=== PATIENT | male | born 1930 | race Caucasian/White ===

== ENCOUNTER 2017-09-27 12:34 | Inpatient (IN) | payer OTHER, MEDICARE ==
--- NOTE | 2017-09-27 12:56 | PDOC ---
History of Present Illness - General History Source: Patient Exam Limitations: No Limitations - History of Present Illness Initial Comments: 09/27/17 15:01 The patient is a 86 year old male resident from [facility], with a significant past medical history of Prostate CA, CHF, HTN, Compartment syndrome , hx of femoral artery occlusion, [place], CAD s/p stents who presents to the emergency department with generalized weakness today. Patient is accompanied by son and daughter who report the patient was admitted at [facility] for femoral artery occlusion however received blood transfusion for acute blood loss after the procedure. Patient was discharged to [facility] for continuation of care. Today, patient sat up on his bed and suddenly became dizzy ,weak and nauseous. Patient appeared to be pale and lethargic and thus was sent to the ED for further evaluation. Patients son notes the patient had a low grade fever and a productive cough that has not resolved. Patient denies chest pain, headache or dizziness. Patient denies fever, chills, abdominal pain, nausea, vomit, diarrhea or constipation. Patient denies dysuria , frequency, urgency or hematuria. Patient denies sick contacts or recent travel. PCP: Dr. Lorenz [phone] <Britt Kent - Last Filed: 09/27/17 19:05> <Thuan Khanna - Last Filed: 09/27/17 19:06> - General Chief Complaint: Syncope/Near Syncope Stated Complaint: SYNCOPE Past History <Britt Kent - Last Filed: 09/27/17 19:05> <Thuan Khanan - Last Filed: 09/27/17 19:06> - Past Medical History Allergies/Adverse Reactions: Allergies Allergy/AdvReac Type Severity Reaction Status Date / Time carvedilol Allergy Verified 09/27/17 12:52 Home Medications: Ambulatory Orders Acetaminophen [Tylenol] 650 mg PO Q6H PRN 09/27/17 Amiodarone HCl 200 mg PO DAILY 09/27/17 Aspirin [ASA -] 81 mg PO DAILY 09/27/17 Atorvastatin Ca [Lipitor] 10 mg PO HS 09/27/17 Budesonide [Pulmicort 0.25 mg -] 1 neb PO BID PRN 09/27/17 Docusate Sodium [Colace -] 200 mg PO DAILY 09/27/17 Enoxaparin Sodium [Lovenox] 100 mg SQ ASDIR 09/27/17 Hydromorphone [Dilaudid -] 2 mg PO ASDIR PRN 09/27/17 Levalbuterol HCl 0.31 mg IH Q6H 09/27/17 Metoprolol Succinate [Toprol Xl -] 25 mg PO DAILY 09/27/17 Warfarin Sodium [Coumadin] 5 mg PO HS 09/27/17 Review of Systems - Review of Systems Able to Perform ROS?: Yes Comments:: 09/27/17 15:01 GENERAL/CONSTITUTIONAL: No fever or chills. + Generalized weakness. HEAD, EYES, EARS, NOSE AND THROAT: No change in vision. No ear pain or discharge. No sore throat. CARDIOVASCULAR: No chest pain or shortness of breath. RESPIRATORY: +cough. No wheezing, or hemoptysis. GASTROINTESTINAL: No nausea, vomiting, diarrhea or constipation. GENITOURINARY: No dysuria, frequency, or change in urination. MUSCULOSKELETAL: No joint or muscle swelling or pain. No neck or back pain. SKIN: No rash NEUROLOGIC: No headache, vertigo, loss of consciousness, or change in strength/ sensation. ENDOCRINE: No increased thirst. No abnormal weight change. HEMATOLOGIC/LYMPHATIC: No anemia, easy bleeding, or history of blood clots. ALLERGIC/IMMUNOLOGIC: No hives or skin allergy. <Britt Kent - Last Filed: 09/27/17 19:05> *Physical Exam - Vital Signs Last Vital Signs Temp Pulse Resp BP Pulse Ox 98.9 F 93 H 20 96/65 96 09/27/17 12:52 09/27/17 12:52 09/27/17 12:52 09/27/17 12:52 09/27/17 12:52 - Physical Exam Comments: 09/27/17 15:01 GENERAL: Awake, alert, and fully oriented, in no acute distress. +Pale appearing. HEAD: No signs of trauma EYES: PERRLA, EOMI, sclera anicteric, conjunctiva clear ENT: Auricles normal inspection, hearing grossly normal, nares patent, oropharynx clear without exudates. Moist mucosa NECK: Normal ROM, supple, no lymphadenopathy, JVD, or masses LUNGS: Breath sounds equal, clear to auscultation bilaterally. No wheezes, and no crackles HEART: Regular rate and rhythm, normal S1 and S2, no murmurs, rubs or gallops ABDOMEN: Soft, nontender, normoactive bowel sounds. No guarding, no rebound. No masses EXTREMITIES: Normal range of motion, no edema. No clubbing or cyanosis. No cords, erythema, or tenderness NEUROLOGICAL: Cranial nerves II through XII grossly intact. Normal speech. SKIN: Warm, Dry, normal turgor, no rashes or lesions noted. <Britt Kent - Last Filed: 09/27/17 19:05> ED Treatment Course - LABORATORY CBC & Chemistry Diagram: 09/27/17 15:00 09/27/17 15:15 - ADDITIONAL ORDERS Additional order review: 09/27/17 13:49 RBC Cancelled MCV Cancelled MCHC Cancelled RDW Cancelled MPV Cancelled Neutrophils % Cancelled Lymphocytes % Cancelled Monocytes % Cancelled Eosinophils % Cancelled Basophils % Cancelled - Medications Given in the ED: ED Medications Discontinued Medications Generic Name Dose Route Start Last Admin Trade Name Freq PRN Reason Stop Dose Admin Sodium Chloride 500 mls @ 500 mls/hr 09/27/17 13:45 09/27/17 14:26 Normal Saline - IV 09/27/17 14:44 500 mls/hr ASDIR STA Administration <Britt Kent - Last Filed: 09/27/17 19:05> - LABORATORY CBC & Chemistry Diagram: 09/27/17 15:00 09/27/17 15:15 <Thuan Khanna - Last Filed: 09/27/17 19:06> Medical Decision Making - Medical Decision Making 09/27/17 17:08 Dr. Lara at [facility] paged via phone answering servic at [phone] Awaiting call back. 09/27/17 17:24 Dr. Lara returned the page and the patients case was discussed. Possible transfer? 09/27/17 17:43 Jane returned the page and the patients case was discussed. 09/27/17 19:04 Contacted [place] [facility] Discussed patients case with ED attending Dr. Sen. <Britt Kent - Last Filed: 09/27/17 19:05> *DC/Admit/Observation/Transfer - Attestations Scribe Attestion: 09/27/17 15:01 Documentation prepared by Britt Kent, acting as medical planner for Thuan Khanna DO. <Britt Kent - Last Filed: 09/27/17 19:05> - Discharge Dispostion Admit: Yes - Attestations Physician Attestion: 09/27/17 12:56 I, Dr. Thuan Khanna, attest that this document has been prepared under my direction and personally reviewed by me in its entirety. I further attest, that it accurately reflects all work, treatment, procedures and medical decision -making performed by me. <Thuan Khanna - Last Filed: 09/27/17 19:06> Diagnosis at time of Disposition: Near syncope Anemia Qualifiers: Anemia type: unspecified type Qualified Code(s): D64.9 - Anemia, unspecified - Discharge Dispostion Condition at time of disposition: Unchanged/Unknown - Referrals Referrals: Tony Lara MD [Non Staff, Medical] -
[2017-09-27 12:57] VITALS: BMI 19.2
[2017-09-27] MEDS ORDERED: SODIUM CHLORIDE 500 ML IV STA ×2 (13:45→17:00)
--- NOTE | 2017-09-27 15:02 | EKG ---
Test Reason : Blood Pressure : / mmHG Vent. Rate : 093 BPM Atrial Rate : 093 BPM P-R Int : 166 ms QRS Dur : 154 ms QT Int : 428 ms P-R-T Axes : 062 082 039 degrees QTc Int : 532 ms NORMAL SINUS RHYTHM POSSIBLE LEFT ATRIAL ENLARGEMENT RIGHT BUNDLE BRANCH BLOCK ANTERIOR INFARCT , AGE UNDETERMINED ABNORMAL ECG NO PREVIOUS ECGS AVAILABLE Confirmed by NARA BYERS MD ([id number]) on 09/27/2017 3:01:46 PM Referred By: Confirmed By:NARA BYERS MD
[2017-09-27 15:15] LABS: HEMATOCRIT 25.3 % (35.4-49); HEMOGLOBIN 8.2 GM/dL (11.7-16.9); MCH 30.7 pg (25.7-33.7); MCHC 32.3 g/dl (32.0-35.9); MEAN PLT VOLUME 7.4 fl (7.5-11.1); PLATELET COUNT 566 K/MM3 (134-434); RBC 2.67 M/mm3 (4.00-5.60); RDW 16.5 % (11.9-15.9); WHITE BLOOD COUNT 20.8 K/mm3 (4.0-10.0)
[2017-09-27 15:39] LABS: INR 1.8 (0.82-1.09); PROTHROMBIN TIME (PATIENT) 20.3 SEC (9.98-11.88)
[2017-09-27 15:44] LABS: ANION GAP 10 (8-16); BLOOD UREA NITROGEN 28 mg/dL (7-18); CHLORIDE 105 mmol/L (98-107); CO2 21 mmol/L (21-32); CREATININE 2.1 mg/dL (0.7-1.3); GLUCOSE,RANDOM 126 mg/dL (74-106); POTASSIUM 4.8 mmol/L (3.5-5.1); SGOT/AST 44 U/L (15-37); SGPT/ALT 45 U/L (12-78); SODIUM 136 mmol/L (136-145)
[2017-09-27 15:48] LABS: ALK PHOS 69 U/L (45-117); BILIRUBIN,TOTAL 0.5 mg/dL (0.2-1.0); TOT PROT 5.4 g/dl (6.4-8.2)
[2017-09-27 17:35] LABS: PLATELET ESTIMATE INCREASED
[2017-09-27] MEDS ORDERED: ACETAMINOPHEN 1000 MG/100 ML VIAL (NON FORMULARY) IVPB ONE (21:12)
[2017-09-27] MEDS ORDERED: ACETAMINOPHEN 325 MG TABLET (FP) ONE (21:22)
[2017-09-27] MEDS ORDERED: ACETAMINOPHEN 325 MG TABLET (FP) PO ONE (21:28)
--- NOTE | 2017-09-27 21:38 | PDOC ---
*Physical Exam - Vital Signs Last Vital Signs Temp Pulse Resp BP Pulse Ox 99.1 F 88 20 95/61 100 09/27/17 20:07 09/27/17 17:22 09/27/17 17:22 09/27/17 17:22 09/27/17 17:22 ED Treatment Course - LABORATORY CBC & Chemistry Diagram: 09/27/17 15:00 09/27/17 15:15 - ADDITIONAL ORDERS Additional order review: Laboratory Results 09/27/17 09/27/17 09/27/17 15:15 15:00 13:49 PT with INR INR Sodium 136 Cancelled Potassium 4.8 Cancelled Chloride 105 Cancelled Carbon Dioxide 21 Cancelled Anion Gap 10 Cancelled BUN 28 H Cancelled Creatinine 2.1 H Cancelled Creat Clearance w eGFR 30.17 Cancelled Random Glucose 126 H Cancelled Calcium 7.0 L Cancelled Total Bilirubin 0.5 Cancelled AST 44 H Cancelled ALT 45 Cancelled Alkaline Phosphatase 69 Cancelled Creatine Kinase 969 H Cancelled Creatine Kinase Index 0.1 CK-MB (CK-2) 1.936 Troponin I 0.04 Cancelled B-Natriuretic Peptide Cancelled Total Protein 5.4 L Cancelled Albumin 2.0 L Cancelled Blood Type A POSITIVE Antibody Screen Negative Crossmatch See Detail 09/27/17 13:49 PT with INR 20.30 H INR 1.80 H Sodium Potassium Chloride Carbon Dioxide Anion Gap BUN Creatinine Creat Clearance w eGFR Random Glucose Calcium Total Bilirubin AST ALT Alkaline Phosphatase Creatine Kinase Creatine Kinase Index CK-MB (CK-2) Troponin I B-Natriuretic Peptide Total Protein Albumin Blood Type Antibody Screen Crossmatch 09/27/17 09/27/17 15:00 13:49 RBC 2.67 L Cancelled MCV 95.0 Cancelled MCHC 32.3 Cancelled RDW 16.5 H Cancelled MPV 7.4 L Cancelled Neutrophils % No Result Required. Cancelled Lymphocytes % No Result Required. Cancelled Monocytes % Cancelled Eosinophils % Cancelled Basophils % Cancelled - Medications Given in the ED: ED Medications Discontinued Medications Generic Name Dose Route Start Last Admin Trade Name Freq PRN Reason Stop Dose Admin Acetaminophen 1,000 mg 09/27/17 21:12 09/27/17 21:29 Ofirmev Injection - IVPB 09/27/17 21:13 Not Given ONCE ONE Acetaminophen 650 mg 09/27/17 21:28 09/27/17 21:29 Tylenol - PO 09/27/17 21:29 650 mg NOW ONE Administration Sodium Chloride 500 mls @ 500 mls/hr 09/27/17 13:45 09/27/17 14:26 Normal Saline - IV 09/27/17 14:44 500 mls/hr ASDIR STA Administration Sodium Chloride 500 mls @ 500 mls/hr 09/27/17 17:00 09/27/17 17:19 Normal Saline - IV 09/27/17 17:59 500 mls/hr ASDIR STA Administration Medical Decision Making - Medical Decision Making 09/27/17 21:37 Pt admitted on prior shift. D/w Dr. Khanna, patient was reportedly on levaquin in [facility] for pna. No record of antibiotics in [place] transfer paperwork, unclear if he completed a course. Will treat with zosyn, as he has elevated creatinine today. Cultures sent on prior shift. 09/27/17 21:58 Late entry. Case d/w Dr. Handy at 20:45. He will evaluate patient in AM. If VAC is not available, recommended wet to dry dressing. Herminio is unable to release the VAC. Not available here at present. I removed the VAC dressing and placed wet to dry with sterile gauze dressing over it as per Dr. Handy. *DC/Admit/Observation/Transfer Diagnosis at time of Disposition: Near syncope Anemia Qualifiers: Anemia type: unspecified type Qualified Code(s): D64.9 - Anemia, unspecified Pneumonia Qualifiers: Pneumonia type: due to unspecified organism Laterality: unspecified laterality Lung location: unspecified part of lung Qualified Code(s): J18.9 - Pneumonia, unspecified organism - Discharge Dispostion Condition at time of disposition: Unchanged/Unknown - Referrals - Patient Instructions - Post Discharge Activity
[2017-09-27] MEDS ORDERED: PIPERACILLIN/TAZOB 4.5 GM 4.5 GM/100 ML BAG IVPB ONE ×2 (21:42→21:53)
[2017-09-27] MEDS ORDERED: BUDESONIDE 0.25 MG/2ML INH SUSP VIAL NEB PRN (22:33)
[2017-09-27] MEDS ORDERED: ACETAMINOPHEN 325 MG TABLET (FP) PO PRN (22:36)
--- NOTE | 2017-09-27 23:01 | HP ---
Admitting History and Physical - Primary Care Physician PCP: Ángel Wang - Admission History of Present Illness: a 86 year old male resident from [facility], with a significant past medical history of Prostate CA, CHF, HTN, Compartment syndrome, hx of femoral artery occlusion, [place], CAD s/p stents who presents to the emergency department with generalized weakness today. Patient is accompanied by son and daughter who report the patient was admitted at [facility] for femoral artery occlusion however received blood transfusion for acute blood loss after the procedure. Patient was discharged to [facility] for continuation of care. Today, patient sat up on his bed and suddenly became dizzy,weak and nauseous. Patient appeared to be pale and lethargic and thus was sent to the ED for further evaluation. Patients son notes the patient had a low grade fever and a productive cough that has not resolved. - Past Medical History Cardiovascular: Yes: CHF, HTN - Smoking History Smoking history: Unknown if ever smoked Home Medications - Allergies Allergies/Adverse Reactions: Allergies Allergy/AdvReac Type Severity Reaction Status Date / Time carvedilol Allergy Verified 09/27/17 12:52 cefuroxime axetil Allergy Verified 09/27/17 22:17 [From Ceftin] - Home Medications Home Medications: Ambulatory Orders Acetaminophen [Tylenol] 650 mg PO Q6H PRN 09/27/17 Amiodarone HCl 200 mg PO DAILY 09/27/17 Aspirin [ASA -] 81 mg PO DAILY 09/27/17 Atorvastatin Ca [Lipitor] 10 mg PO HS 09/27/17 Budesonide [Pulmicort 0.25 mg -] 1 neb PO BID PRN 09/27/17 Docusate Sodium [Colace -] 200 mg PO DAILY 09/27/17 Enoxaparin Sodium [Lovenox] 100 mg SQ ASDIR 09/27/17 Hydromorphone [Dilaudid -] 2 mg PO ASDIR PRN 09/27/17 Levalbuterol HCl 0.31 mg IH Q6H 09/27/17 Metoprolol Succinate [Toprol Xl -] 25 mg PO DAILY 09/27/17 Warfarin Sodium [Coumadin] 5 mg PO HS 09/27/17 Physical Examination Vital Signs: Vital Signs Temperature 99.1 F 09/27/17 20:07 Pulse Rate 88 09/27/17 21:52 Respiratory Rate 20 09/27/17 21:52 Blood Pressure 126/54 09/27/17 21:52 O2 Sat by Pulse Oximetry (%) 100 09/27/17 21:52 Constitutional: Yes: No Distress HENT: Yes: Atraumatic Neck: Yes: Supple Cardiovascular: Yes: Regular Rate and Rhythm Respiratory: Yes: Rhonchi Gastrointestinal: Yes: Normal Bowel Sounds Extremities: Yes: WNL Neurological: Yes: Alert, Oriented Labs: CBC, BMP 09/27/17 15:00 09/27/17 15:15 Problem List - Problems (1) CHF (congestive heart failure) Code(s): I50.9 - HEART FAILURE, UNSPECIFIED (2) HTN (hypertension) Code(s): I10 - ESSENTIAL (PRIMARY) HYPERTENSION (3) Anemia Code(s): D64.9 - ANEMIA, UNSPECIFIED Qualifiers: Anemia type: unspecified type Qualified Code(s): D64.9 - Anemia, unspecified (4) Near syncope Code(s): R55 - SYNCOPE AND COLLAPSE (5) Pneumonia Code(s): J18.9 - PNEUMONIA, UNSPECIFIED ORGANISM Qualifiers: Pneumonia type: due to unspecified organism Laterality: unspecified laterality Lung location: unspecified part of lung Qualified Code(s): J18.9 - Pneumonia, unspecified organism Assessment/Plan Laboratory Tests 09/27/17 09/27/17 09/27/17 13:49 13:49 13:49 WBC Cancelled Corrected WBC (auto) Cancelled RBC Cancelled Hgb Cancelled Hct Cancelled MCV Cancelled MCH Cancelled MCHC Cancelled RDW Cancelled Plt Count Cancelled MPV Cancelled Total Counted Neutrophils % Cancelled Neutrophils % (Manual) Band Neutrophils % Lymphocytes % Cancelled Lymphocytes % (Manual) Monocytes % Cancelled Monocytes % (Manual) Eosinophils % Cancelled Basophils % Cancelled Nucleated RBC % Cancelled Hypochromia Platelet Estimate Cancelled Platelet Comment Cancelled Polychromasia PT with INR 20.30 H INR 1.80 H Sodium Cancelled Potassium Cancelled Chloride Cancelled Carbon Dioxide Cancelled Anion Gap Cancelled BUN Cancelled Creatinine Cancelled Creat Clearance w eGFR Cancelled Random Glucose Cancelled Calcium Cancelled Total Bilirubin Cancelled AST Cancelled ALT Cancelled Alkaline Phosphatase Cancelled Creatine Kinase Cancelled Creatine Kinase Index CK-MB (CK-2) Troponin I Cancelled B-Natriuretic Peptide Cancelled Total Protein Cancelled Albumin Cancelled Blood Type Antibody Screen Crossmatch 09/27/17 09/27/17 09/27/17 15:00 15:00 15:05 WBC 20.8 H Corrected WBC (auto) RBC 2.67 L Hgb 8.2 L Hct 25.3 L MCV 95.0 MCH 30.7 MCHC 32.3 RDW 16.5 H Plt Count 566 H MPV 7.4 L Total Counted 100 Neutrophils % No Result Required. Neutrophils % (Manual) 81.0 Band Neutrophils % 2.0 Lymphocytes % No Result Required. Lymphocytes % (Manual) 8.0 Monocytes % Monocytes % (Manual) 9 Eosinophils % Basophils % Nucleated RBC % Hypochromia 1+ Platelet Estimate Increased Platelet Comment No clumping noted Polychromasia 2+ PT with INR INR Sodium Potassium Chloride Carbon Dioxide Anion Gap BUN Creatinine Creat Clearance w eGFR Random Glucose Calcium Total Bilirubin AST ALT Alkaline Phosphatase Creatine Kinase Creatine Kinase Index CK-MB (CK-2) Troponin I B-Natriuretic Peptide 6066.59 H Total Protein Albumin Blood Type A POSITIVE Antibody Screen Negative Crossmatch See Detail 09/27/17 09/27/17 15:15 19:19 WBC Corrected WBC (auto) RBC Hgb Hct MCV MCH MCHC RDW Plt Count MPV Total Counted Neutrophils % Neutrophils % (Manual) Band Neutrophils % Lymphocytes % Lymphocytes % (Manual) Monocytes % Monocytes % (Manual) Eosinophils % Basophils % Nucleated RBC % Hypochromia Platelet Estimate Platelet Comment Polychromasia PT with INR INR Sodium 136 Potassium 4.8 Chloride 105 Carbon Dioxide 21 Anion Gap 10 BUN 28 H Creatinine 2.1 H Creat Clearance w eGFR 30.17 Random Glucose 126 H Calcium 7.0 L Total Bilirubin 0.5 AST 44 H ALT 45 Alkaline Phosphatase 69 Creatine Kinase 969 H Creatine Kinase Index 0.1 CK-MB (CK-2) 1.936 Troponin I 0.04 B-Natriuretic Peptide Total Protein 5.4 L Albumin 2.0 L Blood Type A POSITIVE Antibody Screen Crossmatch Active Medications Generic Name Dose Route Start Last Admin Trade Name Freq PRN Reason Stop Dose Admin Acetaminophen 650 mg 09/27/17 22:36 Tylenol - PO Q6H PRN FEVER OR PAIN Amiodarone HCl 200 mg 09/28/17 10:00 Cordarone - PO DAILY [facility] Aspirin 81 mg 09/28/17 10:00 Asa - PO DAILY [facility] Atorvastatin Calcium 10 mg 09/28/17 22:00 Lipitor - PO HS [facility] Budesonide 1 amp 09/27/17 22:33 Pulmicort 0.25 Mg Nebulizer - NEB BID PRN SHORTNESS OF BREATH Docusate Sodium 200 mg 09/28/17 10:00 Colace - PO DAILY [facility] Ampicillin Sodium/Sulbactam 100 mls @ 200 mls/hr 09/28/17 02:00 Sodium 1.5 gm/ Sodium Chloride IVPB Q8H-IV [facility] Metoprolol Succinate 25 mg 09/28/17 10:00 Toprol Xl - PO DAILY [facility] Warfarin Sodium 5 mg 09/28/17 18:00 Coumadin - PO DAILY@1800 [facility]
[2017-09-28] MEDS: SODIUM CHLORIDE 1,000 ML IV SCH (01:56)
[2017-09-28] MEDS: AMPICILLIN NA/SULBACTAM NA 1.5 GM in SODIUM CHLORIDE 100 ML IVPB SCH ×3 (02:24→17:39)
[2017-09-28 02:52] LABS: URINE APPEARANCE CLOUDY; URINE BILIRUBIN NEGATIVE (NEGATIVE); URINE BLOOD 3+ (NEGATIVE); URINE COLOR YELLOW; URINE GLUCOSE (UA) NEGATIVE (NEGATIVE); URINE KETONE NEGATIVE (NEGATIVE); URINE LEUK ESTERASE NEGATIVE (NEGATIVE); URINE NITRITE NEGATIVE (NEGATIVE); URINE UROBILINOGEN NEGATIVE mg/dL (0.2-1.0)
[2017-09-28 03:17] LABS: URINE PROTEIN 1+ (NEGATIVE)
[2017-09-28 03:19] LABS: URINE MUCUS RARE
[2017-09-28 07:45] LABS: BASO % 0.5 % (0-2.0); EOS % 0.5 % (0-4.5); HEMATOCRIT 23.8 % (35.4-49); HEMOGLOBIN 7.8 GM/dL (11.7-16.9); LYMPH % 8.7 % (8-40); MCH 30.1 pg (25.7-33.7); MCHC 32.7 g/dl (32.0-35.9); MEAN CELL VOLUME 92.1 fl (80-96); MEAN PLT VOLUME 7.4 fl (7.5-11.1); MONO % 9.4 % (3.8-10.2); NEUT % 80.9 % (42.8-82.8); PLATELET COUNT 440 K/MM3 (134-434); RBC 2.58 M/mm3 (4.00-5.60); RDW 15.5 % (11.9-15.9); WHITE BLOOD COUNT 20.1 K/mm3 (4.0-10.0)
[2017-09-28 08:24] LABS: ALBUMIN 1.9 g/dl (3.4-5.0); ANION GAP 8 (8-16); BLOOD UREA NITROGEN 36 mg/dL (7-18); CALCIUM 7.5 mg/dL (8.5-10.1); CHLORIDE 105 mmol/L (98-107); CO2 24 mmol/L (21-32); CREATININE 2.4 mg/dL (0.7-1.3); GLUCOSE,RANDOM 96 mg/dL (74-106); POTASSIUM 4.6 mmol/L (3.5-5.1); SGOT/AST 48 U/L (15-37); SGPT/ALT 38 U/L (12-78); SODIUM 137 mmol/L (136-145)
[2017-09-28 08:27] LABS: ALK PHOS 61 U/L (45-117); BILIRUBIN,TOTAL 0.8 mg/dL (0.2-1.0)
[2017-09-28] MEDS: DOCUSATE SODIUM 100 MG CAPSULE (FP) PO SCH (09:50)
[2017-09-28] MEDS: ASPIRIN 81 MG CHEWABLE TABLETS PO SCH (09:50)
[2017-09-28] MEDS: metoPROLOL SUCCINATE 25 MG TAB.SR.24H (FP) PO SCH (09:50)
[2017-09-28] MEDS: AMIODARONE HCL 200 MG TABLET (FP) PO SCH (09:51)
--- NOTE | 2017-09-28 12:55 | CONSULT ---
Admitting History and Physical - Primary Care Physician PCP: Ángel Wang - Admission History of Present Illness: Per EMR: a 86 year old male resident from [facility], with a significant past medical history of Prostate CA, CHF, HTN, Compartment syndrome, hx of femoral artery occlusion, CA, CAD s/p stents who presents to the emergency department with generalized weakness today. Patient is accompanied by son and daughter who report the patient was admitted at [facility] for femoral artery occlusion however received blood transfusion for acute blood loss after the procedure. Patient was discharged to [facility] for continuation of care. Today, patient sat up on his bed and suddenly became dizzy,weak and nauseous. Patient appeared to be pale and lethargic and thus was sent to the ED for further evaluation. Patients son notes the patient had a low grade fever and a productive cough that has not resolved. Selected Entries 09/27/17 09/27/17 09/27/17 12:52 20:07 23:00 Temperature 98.9 F 99.1 F 99.6 F 09/28/17 09/28/17 09/28/17 01:34 05:28 09:00 Temperature 98.2 F 97.8 F 98.3 F Laboratory Tests 09/27/17 09/28/17 13:49 06:50 WBC Cancelled 20.1 H CXR (-) Pt reports a persistent cough x 6 weeks. History Source: Patient, Family Member, Medical Record Limitations to Obtaining History: No Limitations - Past Medical History Cardiovascular: Yes: CHF, HTN - Advance Directives Advance Directives: Yes: Health Care Proxy - Smoking History Smoking history: Unknown if ever smoked Have you smoked in the past 12 months: No - Alcohol/Substance Use Hx Alcohol Use: No History - Admission Reason For Visit: ANEMIA - Diagnostics X-ray: Report Reviewed - General Mental Status: Alert and Oriented, Awake and Alert, Able to Follow Commands Attention: Intact Ability to Follow Directions: Excellent Head/Neck Control: WFL - Hearing Hearing: Functional Hearing Aide: No Speech Evaluation - Communication Primary Language: [place] Communication: Yes: Within Normal Limits Oral Expression Ability: Yes: No Impairment - Speech Production Able to Make Needs Known: Yes: WNL Intelligibility: Yes: WNL - Speech Characteristics Voice Loudness: Mildly Soft/Quiet Voice Pitch: Yes: Normal Voice Phonatory-based Quality: Yes: Dysphonia (mild) Speech Clarity: < 100% Nasal Resonance: Normal Articulation: Yes: Precise - Language/Auditory Comprehension Follows: Yes: 2 Stage Simple Commands - Language/Verbal Expression Able to Respond to Simple Queries: Yes: WNL Able to Communicate Wants and Needs: Yes: WNL Functional Communication Status: Yes: WNL - Memory/Perception care home Memory: Yes: WNL Short Term Memory: Yes: WNL - Swallow Evaluation/Bedside Assessment Current Nutritional Intake: Regular, Thin Liquids Oral Secretions: Yes: WFL (frequent dry cough with and without food) Dentition: Yes: Adequate Facial Symmetry at Rest: Symmetrical Facial Symmetry on Retraction: Symmetrical Facial Movement: Controlled Against Resistance Opening: Normal Against Resistance Closing: Normal Pucker Lips: Normal Smile: Normal Lingual Movement: Normal, Symmetric Lingual Speed of Movement: Normal Lingual Movement Strgth Against Opposition: Normal Lingual Movement Characteristics: Normal Velopharyngeal Movement: Normal Laryngeal Elevation: WFL Laryngeal Movement: Able to Palpate Rate of Intake: WFL Bolus Size: WFL Labial Seal: WFL Chewing: WFL Oral Prep Time: WFL A-P Transit: WFL Pocketing: None Timing of Swallow: WFL Coughing/Throat Clear: Yes (frequent dry cough with and without food.Harder cough after 3 oz water test) Recommendations - Speech Evaluation, Impression/Plan Impression: Frequent dry cough with and without food.Harder cough after 3 oz water test. CXR (-). Upon review of swallowing behaviors, pt drinks V8 juice, orange juice, coffee, sometimes eats ice cream before reclining. R/o laryngopharyngeal reflux. Less likely, aspiration. - Dysphagia Impressions/Plan Dysphagia Impressions: Ongoing Evaluation *Silent aspiration: cannot be R/O at bedside Dysphagia Treatment Plan: Elevate HOB during feed (and for 1 hour after meals. No po intake for 2-3 hrs before bedtime.) Recommendations: Modified Barium Swallow, Other (GERD precautions. Consider trial of PPI, if not medically contraindicated.) - Recommendations Diet Consistency: Regular, Other (Eliminate caffeine,carbonation, tomatoes, onions, pepper.Add alkaline water at home.) Medication Administration: Whole with water Liquids: Thin Liquids Supplement: Magic Cup (BID)
[2017-09-28 13:33] LABS: INR 1.95 (0.82-1.09)
--- NOTE | 2017-09-28 14:47 | CON.ID ---
Consult - History of Present Illness History of Present Illness: Asked to evaluate this 86 y.o. male with PMH of HTN, CHF, CAD, HI s/p stents, ICD, Prostate CA, who had a recent hospitalization for Femoral artery occlusion s/p thrombectomy b/l and subsequent compartment syndrome requiring fasciotomy of LLE prior to being discharged to a NH. Pt now presenting with c/o generalized weakness and dizziness when trying to get out of bed. As per daughter at bedside he has had a non-productive cough for one month but no acute SOB, no fever, chills, abd pain/v/d but with some nausea, or dysuria. No h /a or focal deficits reported. In the ER he was noted to have an elevated wbc count (20.8K) and Tmax of 99.6F and SHAKIRA. He was started empirically on IV antibiotics. Currently he is alert and fully responsive and without acute distress but has a cough, and is afebrile. Pt with reported allergy to Ceftin ( hives as per daughter). Appears to be tolerating Zosyn or Unasyn so far. - History Source History Provided By: Patient, Family Member - Past Medical History Cardio/Vascular: Yes: CAD, CHF, HTN - Past Surgical History Additional Surgical History: Thrombectomy/Fasciotomy, ICD placement - Alcohol/Substance Use Hx Alcohol Use: No - Smoking History Smoking history: Unknown if ever smoked Have you smoked in the past 12 months: No - Social History History of Recent Travel: No Home Medications - Allergies Allergies/Adverse Reactions: Allergies Allergy/AdvReac Type Severity Reaction Status Date / Time carvedilol Allergy Verified 09/27/17 12:52 cefuroxime axetil Allergy Verified 09/27/17 22:17 [From Ceftin] - Home Medications Home Medications: Ambulatory Orders Acetaminophen [Tylenol] 650 mg PO Q6H PRN 09/27/17 Amiodarone HCl 200 mg PO DAILY 09/27/17 Aspirin [ASA -] 81 mg PO DAILY 09/27/17 Atorvastatin Ca [Lipitor] 10 mg PO HS 09/27/17 Budesonide [Pulmicort 0.25 mg -] 1 neb PO BID PRN 09/27/17 Docusate Sodium [Colace -] 200 mg PO DAILY 09/27/17 Enoxaparin Sodium [Lovenox] 100 mg SQ ASDIR 09/27/17 Hydromorphone [Dilaudid -] 2 mg PO ASDIR PRN 09/27/17 Levalbuterol HCl 0.31 mg IH Q6H 09/27/17 Metoprolol Succinate [Toprol Xl -] 25 mg PO DAILY 09/27/17 Warfarin Sodium [Coumadin] 5 mg PO HS 09/27/17 Review of Systems - Review of Systems Constitutional: reports: Weakness Eyes: reports: No Symptoms HENT: reports: No Symptoms Neck: reports: No Symptoms Cardiovascular: reports: No Symptoms Respiratory: reports: Cough (dry) Gastrointestinal: reports: No Symptoms Genitourinary: reports: No Symptoms Musculoskeletal: reports: No Symptoms Integumentary: reports: Wound (LLE fascitomy wounds, no tenderness) Neurological: reports: No Symptoms Endocrine: reports: No Symptoms Hematology/Lymphatic: reports: No Symptoms Psychiatric: reports: No Symptoms Physical Exam Vital Signs: Vital Signs Temperature 98.3 F 09/28/17 09:00 Pulse Rate 84 09/28/17 09:00 Respiratory Rate 19 09/28/17 09:00 Blood Pressure 118/53 09/28/17 09:00 O2 Sat by Pulse Oximetry (%) 100 09/28/17 00:51 Constitutional: Yes: No Distress, Calm HENT: Yes: Atraumatic Neck: Yes: Supple Cardiovascular: Yes: Regular Rate and Rhythm Respiratory: Yes: CTA Bilaterally Gastrointestinal: Yes: Normal Bowel Sounds, Soft Renal/: Yes: WNL Musculoskeletal: Yes: WNL Edema: Yes Edema: LLE: 2+, RLE: 2+ Integumentary: Yes: WNL Wound/Incision: Yes: Dressing Dry and Intact (LLE wounds x 2, no purulence/ malodor, no surrounding erythema/warmth/tenderness) Psychiatric: Yes: Alert Labs: CBC, BMP 09/28/17 06:50 09/28/17 06:50 Imaging - Results Chest X-ray: Report Reviewed (no infiltrates) Problem List - Problems (1) Leukocytosis Code(s): D72.829 - ELEVATED WHITE BLOOD CELL COUNT, UNSPECIFIED Assessment/Plan 86 y.o. male with Prostate CA, CAD, HI s/p stent, CHF, HTN s/p recent femoral artery thrombectomy, compartment syndrome s/p fasciotomy presenting with weakness. Leukocytosis Mild fever SHAKIRA - continue Unasyn for now (has been tolerating Zosyn/Unasyn, no signs of allergic reaction, continue monitor) - f/u urine/blood cultures - monitor wbc, vitals - wound care, appear clean - vascular to evaluate
[2017-09-28] MEDS ORDERED: WARFARIN NA 5 MG TABLET (UD) PO SCH (18:00)
--- NOTE | 2017-09-28 19:47 | PN ---
Progress Note, Physician History of Present Illness: no complaints - Current Medication List Current Medications: Active Medications Acetaminophen (Tylenol -) 650 mg PO Q6H PRN PRN Reason: FEVER OR PAIN Amiodarone HCl (Cordarone -) 200 mg PO DAILY [facility] Last Admin: 09/28/17 09:51 Dose: 200 mg Aspirin (Asa -) 81 mg PO DAILY [facility] Last Admin: 09/28/17 09:50 Dose: 81 mg Atorvastatin Calcium (Lipitor -) 10 mg PO [facility] Budesonide (Pulmicort 0.25 Mg Nebulizer -) 1 amp NEB BID PRN PRN Reason: SHORTNESS OF BREATH Docusate Sodium (Colace -) 200 mg PO DAILY [facility] Last Admin: 09/28/17 09:50 Dose: 200 mg Ampicillin Sodium/Sulbactam (Sodium 1.5 gm/ Sodium Chloride) 100 mls @ 200 mls/ hr IVPB Q8H-IV [facility] Last Admin: 09/28/17 17:39 Dose: 200 mls/hr Sodium Chloride (Normal Saline -) 1,000 mls @ 75 mls/hr IV ASDIR [facility] Last Admin: 09/28/17 01:56 Dose: 75 mls/hr Metoprolol Succinate (Toprol Xl -) 25 mg PO DAILY [facility] Last Admin: 09/28/17 09:50 Dose: 25 mg Warfarin Sodium (Coumadin -) 5 mg PO DAILY@1800 [facility] Last Admin: 09/28/17 17:39 Dose: 5 mg - Objective Vital Signs: Vital Signs Temperature 98.2 F 09/28/17 17:00 Pulse Rate 80 09/28/17 17:00 Respiratory Rate 18 09/28/17 17:00 Blood Pressure 100/55 09/28/17 17:00 O2 Sat by Pulse Oximetry (%) 100 09/28/17 09:00 Constitutional: Yes: No Distress HENT: Yes: Atraumatic Neck: Yes: Supple Cardiovascular: Yes: Regular Rate and Rhythm Respiratory: Yes: CTA Bilaterally Extremities: Yes: WNL Neurological: Yes: Alert, Oriented Labs: CBC, BMP 09/28/17 06:50 09/28/17 06:50 INR, PTT INR 1.95 (0.82-1.09) H 09/28/17 12:40 Problem List - Problems (1) CHF (congestive heart failure) Assessment/Plan: on meds stable Code(s): I50.9 - HEART FAILURE, UNSPECIFIED (2) HTN (hypertension) Assessment/Plan: onmeds stable Code(s): I10 - ESSENTIAL (PRIMARY) HYPERTENSION (3) Anemia Code(s): D64.9 - ANEMIA, UNSPECIFIED Qualifiers: Anemia type: unspecified type Qualified Code(s): D64.9 - Anemia, unspecified (4) Near syncope Code(s): R55 - SYNCOPE AND COLLAPSE (5) Pneumonia Assessment/Plan: on iv abx id on board Code(s): J18.9 - PNEUMONIA, UNSPECIFIED ORGANISM Qualifiers: Pneumonia type: due to unspecified organism Laterality: unspecified laterality Lung location: unspecified part of lung Qualified Code(s): J18.9 - Pneumonia, unspecified organism
[2017-09-28] MEDS ORDERED: PT OWN MED DRAWER 7, Y5N ONE (21:08)
[2017-09-28] MEDS: ATORVASTATIN CA 10 MG TABLET (FP) PO SCH (21:19)
[2017-09-29] MEDS: AMPICILLIN NA/SULBACTAM NA 1.5 GM in SODIUM CHLORIDE 100 ML IVPB SCH ×3 (01:27→18:00)
[2017-09-29] MEDS: SODIUM CHLORIDE 1,000 ML IV SCH ×2 (01:28→21:13)
[2017-09-29 07:57] LABS: BASO % 0.3 % (0-2.0); EOS % 1.5 % (0-4.5); LYMPH % 14.9 % (8-40); MCH 30.5 pg (25.7-33.7); MCHC 33.1 g/dl (32.0-35.9); MEAN CELL VOLUME 92.1 fl (80-96); MEAN PLT VOLUME 7.3 fl (7.5-11.1); MONO % 9.9 % (3.8-10.2); NEUT % 73.4 % (42.8-82.8); PLATELET COUNT 425 K/MM3 (134-434); RBC 2.07 M/mm3 (4.00-5.60); RDW 15.8 % (11.9-15.9); WHITE BLOOD COUNT 12.5 K/mm3 (4.0-10.0)
[2017-09-29 08:09] LABS: HEMOGLOBIN 6.3 GM/dL (11.7-16.9)
[2017-09-29 08:28] LABS: INR 1.68 (0.82-1.09)
[2017-09-29] MEDS ORDERED: PT OWN MED DRAWER 7, Y5N ONE (08:30)
[2017-09-29] MEDS: DOCUSATE SODIUM 100 MG CAPSULE (FP) PO SCH (09:38)
[2017-09-29] MEDS: AMIODARONE HCL 200 MG TABLET (FP) PO SCH (09:38)
[2017-09-29] MEDS: metoPROLOL SUCCINATE 25 MG TAB.SR.24H (FP) PO SCH (09:38)
[2017-09-29] MEDS: ASPIRIN 81 MG CHEWABLE TABLETS PO SCH (09:38)
--- NOTE | 2017-09-29 09:40 | CON.GI ---
Consult - History of Present Illness History of Present Illness: Chart reviewed. The patient is a 86 year old male resident from [facility], with a significant past medical history of Prostate CA, CHF, HTN, Compartment syndrome , hx of femoral artery occlusion, NE, CAD s/p stents who presents to the emergency department with generalized weakness. Patient was accompanied by son and daughter who report the patient was admitted at [facility] for femoral artery occlusion however received blood transfusion for acute blood loss after the procedure. Patient was discharged to [facility] for continuation of care. The patient suddenly became dizzy,weak and nauseous yesterday and was sent to the ED for further evaluation. The patient is on Coumadin with elevated PT/INR. Was on ASA and Lovenox at home. No reports of melena, hematochezia, hematemesis. The patient reports no hisitory of GI-related issues. Never had EGD. Had colonsocoipy many years ago. Deneis GERD, dysphagia, odynophagia, dyspepsia, chronic abdomina pain. Deneis jaundice. - History Source History Provided By: Patient, Medical Record Limitations to Obtaining History: No Limitations - Past Medical History Cardio/Vascular: Yes: CHF, HTN - Past Surgical History Additional Surgical History: Thrombectomy/Fasciotomy, ICD placement - Alcohol/Substance Use Hx Alcohol Use: No - Smoking History Smoking history: Unknown if ever smoked Have you smoked in the past 12 months: No - Social History History of Recent Travel: No Home Medications - Allergies Allergies/Adverse Reactions: Allergies Allergy/AdvReac Type Severity Reaction Status Date / Time carvedilol Allergy Verified 09/27/17 12:52 cefuroxime axetil Allergy Verified 09/27/17 22:17 [From Ceftin] - Home Medications Home Medications: Ambulatory Orders Acetaminophen [Tylenol] 650 mg PO Q6H PRN 09/27/17 Amiodarone HCl 200 mg PO DAILY 09/27/17 Aspirin [ASA -] 81 mg PO DAILY 09/27/17 Atorvastatin Ca [Lipitor] 10 mg PO HS 09/27/17 Budesonide [Pulmicort 0.25 mg -] 1 neb PO BID PRN 09/27/17 Docusate Sodium [Colace -] 200 mg PO DAILY 09/27/17 Enoxaparin Sodium [Lovenox] 100 mg SQ ASDIR 09/27/17 Hydromorphone [Dilaudid -] 2 mg PO ASDIR PRN 09/27/17 Levalbuterol HCl 0.31 mg IH Q6H 09/27/17 Metoprolol Succinate [Toprol Xl -] 25 mg PO DAILY 09/27/17 Warfarin Sodium [Coumadin] 5 mg PO HS 09/27/17 Family Disease History - Family Disease History Family History: Unremarkable Review of Systems Findings/Remarks: please see H&P, HPI Physical Exam-GI Vital Signs: Vital Signs Temperature 98.4 F 09/29/17 06:22 Pulse Rate 70 09/29/17 06:22 Respiratory Rate 18 09/29/17 06:22 Blood Pressure 99/50 09/29/17 06:22 O2 Sat by Pulse Oximetry (%) 96 09/28/17 21:00 Constitutional: Yes: Well Nourished, No Distress, Calm Eyes: Yes: Conjunctiva Clear HENT: Yes: Atraumatic Neck: Yes: Supple Respiratory: Yes: Regular ...Auscultate: Yes: Normoactive Bowel Sounds ...Palpate: Yes: Soft, Tenderness. No: Firm/Rigid, Guarding, Mass, Tenderness, Epigastium, Tenderness, Rebound Neurological: Yes: Alert, Oriented Labs: CBC, BMP 09/29/17 05:35 09/28/17 06:50 INR, PTT INR 1.68 (0.82-1.09) H 09/29/17 05:35 Laboratory Results - last 24 hr 09/27/17 09/27/17 09/28/17 15:00 19:19 12:40 WBC RBC Hgb Hct MCV MCH MCHC RDW Plt Count MPV Neutrophils % Lymphocytes % Monocytes % Eosinophils % Basophils % PT with INR 22.00 H INR 1.95 H Blood Type A POSITIVE Antibody Screen Negative Crossmatch See Detail See Detail 09/29/17 09/29/17 05:35 05:35 WBC 12.5 H D RBC 2.07 L Hgb 6.3 L* D Hct 19.0 L D MCV 92.1 MCH 30.5 MCHC 33.1 RDW 15.8 Plt Count 425 MPV 7.3 L Neutrophils % 73.4 Lymphocytes % 14.9 D Monocytes % 9.9 Eosinophils % 1.5 D Basophils % 0.3 PT with INR 19.00 H INR 1.68 H Blood Type Antibody Screen Crossmatch Problem List - Problems (1) Anemia Code(s): D64.9 - ANEMIA, UNSPECIFIED Qualifiers: Qualified Code(s): D64.9 - Anemia, unspecified Assessment/Plan An 86 yom on anticoagulation/antiplatelet therapy developed significant, symptomatic anemia w/o obvious external signs of GI/other sources of bleeding. No sign sof hemodynamic instability at this time. No signs of retroperitoneal bleed. Recommend holding anticoagulation/antiplatelet therapies EGD/colonoscopy to r/o gi sources especially if chronic anticoagulation is entertained, if cleared by cardiology Close monitoring for signs of bleeding Discussed with the patient, his daughter Pt's lab aid Dr Twin Knowles [phone] consult request placed
[2017-09-29 10:23] LABS: ALBUMIN 1.7 g/dl (3.4-5.0); ANION GAP 8 (8-16); BLOOD UREA NITROGEN 38 mg/dL (7-18); CALCIUM 7.1 mg/dL (8.5-10.1); CHLORIDE 108 mmol/L (98-107); CO2 22 mmol/L (21-32); GLUCOSE,RANDOM 123 mg/dL (74-106); POTASSIUM 4.2 mmol/L (3.5-5.1); SGOT/AST 54 U/L (15-37); SGPT/ALT 41 U/L (12-78); SODIUM 138 mmol/L (136-145)
[2017-09-29 10:26] LABS: ALK PHOS 60 U/L (45-117); BILIRUBIN,TOTAL 0.5 mg/dL (0.2-1.0); TOT PROT 4.8 g/dl (6.4-8.2)
--- NOTE | 2017-09-29 15:16 | PN ---
Progress Note, Physician History of Present Illness: Pt is alert, without acute distress. Is receiving blood transfusion. Denies fever/chills, abd pain, shortness of breath. Is tolerating antibiotics. No rash. - Current Medication List Current Medications: Active Medications Acetaminophen (Tylenol -) 650 mg PO Q6H PRN PRN Reason: FEVER OR PAIN Amiodarone HCl (Cordarone -) 200 mg PO DAILY [facility] Last Admin: 09/29/17 09:38 Dose: 200 mg Aspirin (Asa -) 81 mg PO DAILY [facility] Last Admin: 09/29/17 09:38 Dose: 81 mg Atorvastatin Calcium (Lipitor -) 10 mg PO HS [facility] Last Admin: 09/28/17 21:19 Dose: 10 mg Budesonide (Pulmicort 0.25 Mg Nebulizer -) 1 amp NEB BID PRN PRN Reason: SHORTNESS OF BREATH Docusate Sodium (Colace -) 200 mg PO DAILY [facility] Last Admin: 09/29/17 09:38 Dose: 200 mg Ampicillin Sodium/Sulbactam (Sodium 1.5 gm/ Sodium Chloride) 100 mls @ 200 mls/ hr IVPB Q8H-IV [facility] Last Admin: 09/29/17 09:37 Dose: 200 mls/hr Sodium Chloride (Normal Saline -) 1,000 mls @ 75 mls/hr IV ASDIR [facility] Last Admin: 09/29/17 01:28 Dose: 75 mls/hr Metoprolol Succinate (Toprol Xl -) 25 mg PO DAILY [facility] Last Admin: 09/29/17 09:38 Dose: 25 mg Warfarin Sodium (Coumadin -) 5 mg PO DAILY@1800 [facility] Last Admin: 09/28/17 17:39 Dose: 5 mg - Objective Vital Signs: Vital Signs Temperature 97.7 F 09/29/17 12:29 Pulse Rate 70 09/29/17 12:29 Respiratory Rate 18 09/29/17 12:29 Blood Pressure 121/53 09/29/17 12:29 O2 Sat by Pulse Oximetry (%) 96 09/28/17 21:00 Constitutional: Yes: No Distress, Calm Neck: Yes: Supple Cardiovascular: Yes: Regular Rate and Rhythm Respiratory: Yes: CTA Bilaterally Gastrointestinal: Yes: Normal Bowel Sounds, Soft Genitourinary: Yes: WNL Wound/Incision: Yes: Dressing Dry and Intact Neurological: Yes: Alert, Oriented Labs: CBC, BMP 09/29/17 05:35 09/29/17 09:25 INR, PTT INR 1.68 (0.82-1.09) H 09/29/17 05:35 Problem List - Problems (1) Leukocytosis Code(s): D72.829 - ELEVATED WHITE BLOOD CELL COUNT, UNSPECIFIED Assessment/Plan 86 y.o. male with Prostate CA, CAD, [place] s/p stent, CHF, HTN s/p recent femoral artery thrombectomy, compartment syndrome s/p LLE fasciotomy presenting with weakness. Leukocytosis unclear etiology Mild fever - afebrile now SHAKIRA Anemia- receiving blood transfusion - continue Unasyn for now - blood and urine cultures - no growth - wbc almost within normal range - continue wound care, appears clean - vascular to evaluate continue monitor for now, will decide on whether to continue antibiotics
--- NOTE | 2017-09-29 15:57 | CON.CARD ---
Consult Consult Specialty:: Cardiology Referred by:: Dr. Jesús Nye Reason for Consultation:: Pre-op for GI endoscopy - History of Present Illness Chief Complaint: Weakness, dizziness, anemia, recent acute left leg ischemia s/ p embolectomy, apical thrombus History of Present Illness: 86 yo male with HTN, hyperlipidemia, CAD, prior anteroseptal OR in 1983 and 1991 -> PCI of LAD, ischemic cardiomyopathy, recurrent VT (has [employer] AICD implanted 2009, and on amdiodarone), who was recently discharged from [facility] on 09/24/17 to [facility] after being admitted on 09/15/17 with acute left leg ischemia. He was found to have thrombus in DIRECTOR POST/SFA/profunda bilaterally and underwent bilateral embolectomy on 09/15 and fasciotomy on for compartment syndrome. Echocardiogram on 09/15/17 demonstrated LVEF 44% with apical thrombus (1 x 2 cm). Patient was started on heparin gtt at that time and eventually transitioned to Lovenox and coumadin. Patient was admitted on 09/27/17 from [facility] with generalized weakness and dizziness. Hgb on admission was 8.3 but dropped to 6.3 today. Currently being transfused with PRBCs. No signs of active bleeding. Patient denies melena, hematochezia, or hematemesis. Cardiology consult was requested by GI service for pre-endoscopy cardiac evaluation for further evaluation of anemia as patient will require chronic anticoagulation given his recent thromboembolism due to apical thrombus during his recent [place] hospitalization. - History Source History Provided By: Patient, Family Member, Medical Record Limitations to Obtaining History: No Limitations - Past Medical History Cardio/Vascular: Yes: CAD, CHF (ischemic cardiomyopathy w/ [employer]ir[employer] AICD implanted 2009), HTN, Hyperlipdemia, OR, Other (Ventricular tachycardia (AICD and on amiodarone)) Gastrointestinal: Yes: Other (Colonic polyps) Renal/: Yes: Cancer (Prostate cancer) Additional Medical History: Acute left leg ischemia w/ thrombus in DIRECTOR POST/SFA/ profunda bilaterally and underwent bilateral embolectomy on 09/15 and fasciotomy on 09/16. Apical LV thrombus per 09/15/17 echocardiogram. - Past Surgical History Past Surgical History: Yes: Appendectomy, Cataract Removal (Bilateral 01/2012), Hernia Repair (Inguinal hernia repair 07/1997), Prostatectomy (1985), Vein Stripping/Ligation Additional Surgical History: Bilateral embolectomy on 09/15/17 and fasciotomy bilateral lower extremities on 09/16, AICD placement - Alcohol/Substance Use Hx Alcohol Use: No History of Substance Use: reports: None - Smoking History Smoking history: Former smoker (Quit 1976) Have you smoked in the past 12 months: No - Social History History of Recent Travel: No Home Medications - Allergies Allergies/Adverse Reactions: Allergies Allergy/AdvReac Type Severity Reaction Status Date / Time carvedilol Allergy Verified 09/27/17 12:52 cefuroxime axetil Allergy Verified 09/27/17 22:17 [From Ceftin] - Home Medications Home Medications: Ambulatory Orders Acetaminophen [Tylenol] 650 mg PO Q6H PRN 09/27/17 Amiodarone HCl 200 mg PO DAILY 09/27/17 Aspirin [ASA -] 81 mg PO DAILY 09/27/17 Atorvastatin Ca [Lipitor] 10 mg PO HS 09/27/17 Budesonide [Pulmicort 0.25 mg -] 1 neb PO BID PRN 09/27/17 Docusate Sodium [Colace -] 200 mg PO DAILY 09/27/17 Enoxaparin Sodium [Lovenox] 100 mg SQ ASDIR 09/27/17 Hydromorphone [Dilaudid -] 2 mg PO ASDIR PRN 09/27/17 Levalbuterol HCl 0.31 mg IH Q6H 09/27/17 Metoprolol Succinate [Toprol Xl -] 25 mg PO DAILY 09/27/17 Warfarin Sodium [Coumadin] 5 mg PO HS 09/27/17 Family Disease History - Family Disease History Family Disease History: Heart Disease: Father, Mother Review of Systems - Review of Systems Constitutional: reports: Weakness. denies: Chills, Fever Eyes: reports: No Symptoms HENT: reports: No Symptoms Neck: reports: No Symptoms Cardiovascular: denies: Chest Pain, Palpitations, Shortness of Breath Respiratory: reports: SOB. denies: Hemoptysis, Orthopnea Gastrointestinal: denies: Abdominal Pain, Constipation, Diarrhea, Melena, Nausea , Rectal Bleeding, Vomiting, Vomiting Blood Genitourinary: denies: Hematuria Neurological: reports: No Symptoms Endocrine: reports: No Symptoms Hematology/Lymphatic: reports: No Symptoms Psychiatric: reports: No Symptoms Vital Signs: Vital Signs Temperature 98.1 F 09/29/17 13:53 Pulse Rate 67 09/29/17 13:53 Respiratory Rate 20 09/29/17 13:53 Blood Pressure 113/52 09/29/17 13:53 O2 Sat by Pulse Oximetry (%) 96 09/28/17 21:00 Constitutional: Yes: Well Nourished, No Distress Eyes: Yes: EOM Intact HENT: Yes: Atraumatic, Normocephalic Respiratory: Yes: CTA Bilaterally Gastrointestinal: Yes: Normal Bowel Sounds, Soft. No: Distention, Tenderness Cardiovascular: Yes: Regular Rate and Rhythm JVD: No Carotid Bruit: No PMI: Non-Displaced Heart Sounds: Yes: S1, S2 Murmur: No: Systolic Murmur Edema: No Neurological: Yes: Alert, Oriented, Cran Nerves II-XII Intact Psychiatric: Yes: Alert, Oriented - Other Data Labs, Other Data: CBC, BMP 09/29/17 05:35 09/29/17 09:25 INR, PTT INR 1.68 (0.82-1.09) H 09/29/17 05:35 09/27/17 ECG: Sinus rhythm, rate 93 bpm, RBBB, anterior infarct, possible LAE Echo: Report Reviewed (09/15/17 Echo: Limited study. LV dilatation with akinetic and aneurysmal apex. Echodensity in apex measuring 1 x 2 cm which may represent thrombus. LVEF 44%. Trace MR. Mild AR.) Imaging - Results Other: Report Reviewed (08/2014 Adenosine sestamibi: Large anterior apical inferior lateral infarct with minimal markus-infarct ischemia.) Assessment/Plan 86 yo male with HTN, hyperlipidemia, CAD, prior anteroseptal OR in 1983 and 1991 -> PCI of LAD, ischemic cardiomyopathy, recurrent VT (has [employer] AICD implanted 2009, and on amdiodarone), who was recently discharged from [facility] on 09/24/17 to [facility] after being admitted on 09/15/17 with acute left leg ischemia. He was found to have thrombus in DIRECTOR POST/SFA/profunda bilaterally and underwent bilateral embolectomy on 09/15 and fasciotomy on for compartment syndrome. Echocardiogram on 09/15/17 demonstrated LVEF 44% with apical thrombus (1 x 2 cm). Patient was started on heparin gtt at that time and eventually transitioned to Lovenox and coumadin. Admitted on 09/27/17 from [facility] with generalized weakness and dizziness. Hgb on admission was 8.3 but dropped to 6.3 today. Currently being transfused with PRBCs. No signs of active bleeding. Patient denies melena, hematochezia, or hematemesis. Cardiology consult was requested by GI service for pre-endoscopy cardiac evaluation for further evaluation of anemia as patient will require chronic anticoagulation given his recent thromboembolism due to apical thrombus during his recent [place] hospitalization. RECS: Will hold aspirin and coumadin at this time until GI bleeding source has been ruled out. INR 1.68 today. Patient may proceed with his upper and lower GI endoscopy without further cardiac work-up and intervention. If no GI bleeding source is found and patient's Hgb remains stable post-PRBC transfusion, will resume anticoagulation with coumadin with INR goal 2-3. Continue current medical management of metoprolol, atorvastatin, and amiodarone. Continue to monitor on telemetry. Will follow. Please call with questions.
[2017-09-29] MEDS ORDERED: PEG3350/SOD SULF,BICARB,CL/KCL 4,000 ML SOLN.RECON PO ONE (16:35)
[2017-09-29] MEDS ORDERED: BISACODYL 5 MG TABLET.DR (FP) PO ONE (16:35)
--- NOTE | 2017-09-29 16:37 | PN ---
Progress Note (short form) - Note Progress Note: The case was discussed with cardiology. Cleared for EGD and colonoscopy. Coumadin on hold. INR 1.65 today. Repeat INR, CBC in a.m. Plan colonoscopy in a.m. Discussed with the patient's daughter and his nurse. Problem List - Problems (1) Anemia Code(s): D64.9 - ANEMIA, UNSPECIFIED Qualifiers: Qualified Code(s): D64.9 - Anemia, unspecified
--- NOTE | 2017-09-29 17:28 | PN ---
Progress Note (short form) - Note Progress Note: Vascular Surgery: Called to see patient for follow-up wound care. The patient states that he had surgery late August at [facility] for lower extremity ischemia. He hasn' t ambulated since prior to surgery. While at [facility] the patient developed dizziness and was sent to the ER for evaluation. He is currently being treated for anemia. He was transfused upon admission and today is also receiving 2 units of PRBC. He denies any pain to his lower ext. As per the cardiology note, His EF in late August was 44 and he had thrombus in his left ventricle. Surgery was called to evaluate his wounds and possible placement of wound vac. PMHX: HTN, CHF PSHX: Right femoral endarterectomy, Left femoral endarterectomy with lower ext fasciotomy Vital Signs Period Temp Pulse Resp BP Sys/Wright Pulse Ox Last 24 Hr 97.7 F-98.7 F 67-78 18-20 99-123/43-53 96-99 GEN: appears comfortable ABD: soft, non-distended, non-tender. b/l groin incisions c/d/i. No erythema, swelling or drainage LE: +2 DP b/l and feet warm to touch. RLE with chronic venous stasis changes and pitting edema. LLE with medial and lateral fasciotomy incisions. Wounds are pink with granulation tissue. To the left lateral wound there is a superficial amount of necrotic tissue over an exposed tendon, otherwise clean. No depth to the wounds. Adaptic replaced with xeroform to the lateral wound. 5/5 dorsi/plantar flexion to RLE, Heel protector in place. in Nove i CBC, BMP 09/29/17 05:35 09/29/17 09:25 Laboratory Tests 09/29/17 05:35 INR 1.68 H A/P: 86 yo male. s/p b/l femoral endarterectomy for ischemia at [facility] in August secondary to thrombus Holding coumadin currently and transfusion PRBC for acute anemia, receiving his 3 units of PRBC Plan for egd/colonscopy as per GI Serial H&H Wound care with xeroform/kerlix to left leg D/w Dr. Handy
--- NOTE | 2017-09-29 20:26 | PN ---
Progress Note, Physician History of Present Illness: no complaints - Current Medication List Current Medications: Active Medications Acetaminophen (Tylenol -) 650 mg PO Q6H PRN PRN Reason: FEVER OR PAIN Amiodarone HCl (Cordarone -) 200 mg PO DAILY [facility] Last Admin: 09/29/17 09:38 Dose: 200 mg Atorvastatin Calcium (Lipitor -) 10 mg PO HS [facility] Last Admin: 09/28/17 21:19 Dose: 10 mg Budesonide (Pulmicort 0.25 Mg Nebulizer -) 1 amp NEB BID PRN PRN Reason: SHORTNESS OF BREATH Docusate Sodium (Colace -) 200 mg PO DAILY [facility] Last Admin: 09/29/17 09:38 Dose: 200 mg Ampicillin Sodium/Sulbactam (Sodium 1.5 gm/ Sodium Chloride) 100 mls @ 200 mls/ hr IVPB Q8H-IV [facility] Last Admin: 09/29/17 18:00 Dose: 200 mls/hr Sodium Chloride (Normal Saline -) 1,000 mls @ 75 mls/hr IV ASDIR [facility] Last Admin: 09/29/17 01:28 Dose: 75 mls/hr Metoprolol Succinate (Toprol Xl -) 25 mg PO DAILY [facility] Last Admin: 09/29/17 09:38 Dose: 25 mg - Objective Vital Signs: Vital Signs Temperature 98 F 09/29/17 18:00 Pulse Rate 63 09/29/17 18:00 Respiratory Rate 20 09/29/17 18:00 Blood Pressure 118/58 09/29/17 18:00 O2 Sat by Pulse Oximetry (%) 99 09/29/17 09:00 Constitutional: Yes: No Distress HENT: Yes: Atraumatic Neck: Yes: Supple Cardiovascular: Yes: Regular Rate and Rhythm Respiratory: Yes: CTA Bilaterally Gastrointestinal: Yes: Normal Bowel Sounds Extremities: Yes: WNL Neurological: Yes: Alert, Oriented Labs: CBC, BMP 09/29/17 05:35 09/29/17 09:25 INR, PTT INR 1.68 (0.82-1.09) H 09/29/17 05:35 Problem List - Problems (1) CHF (congestive heart failure) Assessment/Plan: on meds stable Code(s): I50.9 - HEART FAILURE, UNSPECIFIED (2) HTN (hypertension) Assessment/Plan: onmeds stable Code(s): I10 - ESSENTIAL (PRIMARY) HYPERTENSION (3) Anemia Assessment/Plan: for egd/colonoscopy in am Code(s): D64.9 - ANEMIA, UNSPECIFIED Qualifiers: Anemia type: unspecified type Qualified Code(s): D64.9 - Anemia, unspecified (4) Near syncope Code(s): R55 - SYNCOPE AND COLLAPSE (5) Pneumonia Assessment/Plan: on iv abx id on board Code(s): J18.9 - PNEUMONIA, UNSPECIFIED ORGANISM Qualifiers: Pneumonia type: due to unspecified organism Laterality: unspecified laterality Lung location: unspecified part of lung Qualified Code(s): J18.9 - Pneumonia, unspecified organism
[2017-09-29] MEDS: PANTOPRAZOLE SODIUM 40 MG VIAL IVPUSH SCH (21:12)
[2017-09-29] MEDS: ATORVASTATIN CA 10 MG TABLET (FP) PO SCH (21:13)
[2017-09-30] MEDS ORDERED: PT OWN MED DRAWER 7, Y5N ONE (01:38)
[2017-09-30] MEDS: AMPICILLIN NA/SULBACTAM NA 1.5 GM in SODIUM CHLORIDE 100 ML IVPB SCH ×3 (01:49→18:03)
[2017-09-30 07:38] LABS: BASO % 0.7 % (0-2.0); EOS % 1.9 % (0-4.5); HEMATOCRIT 26.6 % (35.4-49); HEMOGLOBIN 8.9 GM/dL (11.7-16.9); LYMPH % 14.7 % (8-40); MCH 30.3 pg (25.7-33.7); MCHC 33.6 g/dl (32.0-35.9); MONO % 10.4 % (3.8-10.2); NEUT % 72.3 % (42.8-82.8); PLATELET COUNT 445 K/MM3 (134-434); RBC 2.95 M/mm3 (4.00-5.60); RDW 16.3 % (11.9-15.9); WHITE BLOOD COUNT 9.9 K/mm3 (4.0-10.0)
[2017-09-30 07:49] LABS: INR 1.49 (0.82-1.09); PROTHROMBIN TIME (PATIENT) 16.8 SEC (9.98-11.88)
[2017-09-30] MEDS: SODIUM CHLORIDE 1,000 ML IV SCH ×2 (09:28→23:45)
[2017-09-30] MEDS: metoPROLOL SUCCINATE 25 MG TAB.SR.24H (FP) PO SCH (09:37)
[2017-09-30] MEDS: AMIODARONE HCL 200 MG TABLET (FP) PO SCH (09:37)
[2017-09-30] MEDS: DOCUSATE SODIUM 100 MG CAPSULE (FP) PO SCH (09:38)
[2017-09-30] MEDS: PANTOPRAZOLE SODIUM 40 MG VIAL IVPUSH SCH (09:38)
[2017-09-30] MEDS ORDERED: PROPOFOL 20 ML ONE ×4 (12:32)
--- NOTE | 2017-09-30 13:09 | PROC ---
Endoscopy Procedure Endoscopy procedure completed. Please see scanned procedure report. Normal EGD findings Moderate-severe diverticulosis localized to the sigmoid colon, otherwise normal colonoscopy to the cecum.
[2017-09-30] MEDS ORDERED: WARFARIN NA 5 MG TABLET (UD) PO ONE (15:35)
--- NOTE | 2017-09-30 15:52 | PN ---
Progress Note, Physician History of Present Illness: Pt remains alert, stable. S/P EGD/Colonoscopy today for anemia. Has dry cough but afebrile, wbc normal. No new complaints. - Current Medication List Current Medications: Active Medications Acetaminophen (Tylenol -) 650 mg PO Q6H PRN PRN Reason: FEVER OR PAIN Amiodarone HCl (Cordarone -) 200 mg PO DAILY [facility] Last Admin: 09/30/17 09:37 Dose: 200 mg Atorvastatin Calcium (Lipitor -) 10 mg PO HS [facility] Last Admin: 09/29/17 21:13 Dose: 10 mg Budesonide (Pulmicort 0.25 Mg Nebulizer -) 1 amp NEB BID PRN PRN Reason: SHORTNESS OF BREATH Docusate Sodium (Colace -) 200 mg PO DAILY [facility] Last Admin: 09/30/17 09:38 Dose: 200 mg Ampicillin Sodium/Sulbactam (Sodium 1.5 gm/ Sodium Chloride) 100 mls @ 200 mls/ hr IVPB Q8H-IV [facility] Last Admin: 09/30/17 09:37 Dose: 200 mls/hr Sodium Chloride (Normal Saline -) 1,000 mls @ 75 mls/hr IV ASDIR [facility] Last Admin: 09/30/17 09:28 Dose: Not Given Metoprolol Succinate (Toprol Xl -) 25 mg PO DAILY [facility] Last Admin: 09/30/17 09:37 Dose: 25 mg Warfarin Sodium (Coumadin -) 5 mg PO NOW ONE Stop: 09/30/17 15:36 Warfarin Sodium (Coumadin -) 5 mg PO DAILY@1800 [facility] - Objective Vital Signs: Vital Signs Temperature 97.8 F 09/30/17 13:04 Pulse Rate 64 09/30/17 14:00 Respiratory Rate 18 09/30/17 14:00 Blood Pressure 98/47 09/30/17 14:00 O2 Sat by Pulse Oximetry (%) 100 09/30/17 14:00 Constitutional: Yes: No Distress, Calm Cardiovascular: Yes: Regular Rate and Rhythm Respiratory: Yes: CTA Bilaterally Gastrointestinal: Yes: Normal Bowel Sounds, Soft Genitourinary: Yes: WNL Edema: LLE: 3+, RLE: 3+ Wound/Incision: Yes: Dressing Dry and Intact (LLE dressing intact) Psychiatric: Yes: Alert Labs: CBC, BMP 09/30/17 06:25 09/29/17 09:25 INR, PTT INR 1.49 (0.82-1.09) H 09/30/17 06:25 Problem List - Problems (1) Leukocytosis Code(s): D72.829 - ELEVATED WHITE BLOOD CELL COUNT, UNSPECIFIED Assessment/Plan 86 y.o. male with Prostate CA, CAD, [place] s/p stent, CHF, HTN s/p recent femoral artery thrombectomy, compartment syndrome s/p LLE fasciotomy presenting with weakness. Leukocytosis- resolved Mild fever - afebrile now Anemia-s/p EGD/Colonoscopy - continue Unasyn for now empirically - blood and urine cultures - no growth - continue wound care, vascular eval noted
[2017-09-30] MEDS ORDERED: WARFARIN NA 7.5 MG TABLET (FP) PO ONE (16:09)
--- NOTE | 2017-09-30 16:14 | PN ---
Progress Note, Physician History of Present Illness: Underwent EGD and colonoscopy today without complications. Doing well. - Current Medication List Current Medications: Active Medications Acetaminophen (Tylenol -) 650 mg PO Q6H PRN PRN Reason: FEVER OR PAIN Amiodarone HCl (Cordarone -) 200 mg PO DAILY [facility] Last Admin: 09/30/17 09:37 Dose: 200 mg Atorvastatin Calcium (Lipitor -) 10 mg PO HS [facility] Last Admin: 09/29/17 21:13 Dose: 10 mg Budesonide (Pulmicort 0.25 Mg Nebulizer -) 1 amp NEB BID PRN PRN Reason: SHORTNESS OF BREATH Docusate Sodium (Colace -) 200 mg PO DAILY [facility] Last Admin: 09/30/17 09:38 Dose: 200 mg Ampicillin Sodium/Sulbactam (Sodium 1.5 gm/ Sodium Chloride) 100 mls @ 200 mls/ hr IVPB Q8H-IV [facility] Last Admin: 09/30/17 09:37 Dose: 200 mls/hr Sodium Chloride (Normal Saline -) 1,000 mls @ 75 mls/hr IV ASDIR [facility] Last Admin: 09/30/17 09:28 Dose: Not Given Metoprolol Succinate (Toprol Xl -) 25 mg PO DAILY [facility] Last Admin: 09/30/17 09:37 Dose: 25 mg Warfarin Sodium (Coumadin -) 5 mg PO NOW ONE Stop: 09/30/17 15:36 Warfarin Sodium (Coumadin -) 5 mg PO DAILY@1800 [facility] - Objective Vital Signs: Vital Signs Temperature 97.8 F 09/30/17 13:04 Pulse Rate 64 09/30/17 14:00 Respiratory Rate 18 09/30/17 14:00 Blood Pressure 98/47 09/30/17 14:00 O2 Sat by Pulse Oximetry (%) 100 09/30/17 14:00 Constitutional: Yes: Well Nourished, No Distress Eyes: Yes: Conjunctiva Clear, EOM Intact HENT: Yes: Atraumatic, Normocephalic Cardiovascular: Yes: Regular Rate and Rhythm. No: JVD Respiratory: Yes: CTA Bilaterally Gastrointestinal: Yes: Normal Bowel Sounds, Soft. No: Tenderness Neurological: Yes: Alert, Oriented, Cran Nerves II-XII Intact Labs: CBC, BMP 09/30/17 06:25 09/29/17 09:25 INR, PTT INR 1.49 (0.82-1.09) H 09/30/17 06:25 Assessment/Plan 86 yo male with HTN, hyperlipidemia, CAD, prior anteroseptal SD in 1983 and 1991 -> PCI of LAD, ischemic cardiomyopathy, recurrent VT (has [employer] AICD implanted 2009, and on amdiodarone), who was recently discharged from [facility] on 09/24/17 to [facility] after being admitted on 09/15/17 with acute left leg ischemia. He was found to have thrombus in [employer]/SFA/profunda bilaterally and underwent bilateral embolectomy on 09/15 and fasciotomy on for compartment syndrome. Echocardiogram on 09/15/17 demonstrated LVEF 44% with apical thrombus (1 x 2 cm). Patient was started on heparin gtt at that time and eventually transitioned to Lovenox and coumadin. Admitted on 09/27/17 from [facility] with generalized weakness and dizziness. Hgb on admission was 8.3 but dropped to 6.3 today. Currently being transfused with PRBCs. No signs of active bleeding. Patient denies melena, hematochezia, or hematemesis. Cardiology consult was requested by GI service for pre-endoscopy cardiac evaluation for further evaluation of anemia as patient will require chronic anticoagulation given his recent thromboembolism due to apical thrombus during his recent [place] hospitalization. EGD and colonscopy today demonstrated mild gastritis and RECS: Will resume aspirin 81 mg po daily tomorrow. Will resume coumadin tonight with 7.5 mg po x1 and 5 mg po daily tomorrow. INR goal 2-3. Continue current medical management of metoprolol, atorvastatin, and amiodarone. Continue to monitor on telemetry. Patient may be transferred back to [facility] from cardiac standpoint if Hgb remains stable. Discharge planning as per primary team. Will see prn. Please call with questions.
--- NOTE | 2017-09-30 19:55 | PN ---
Progress Note, COMBINER OPERATOR - Note Progress Note: G.I. work up noted. Patient is on protonix. Reviewed Gerd/laryngopharyngeal reflux Precautions that may be Contributing to patients dry cough and educated patient and his family as well as Dietary regarding recommendations.
--- NOTE | 2017-09-30 20:38 | PN ---
Progress Note, Physician History of Present Illness: no complaints - Current Medication List Current Medications: Active Medications Acetaminophen (Tylenol -) 650 mg PO Q6H PRN PRN Reason: FEVER OR PAIN Amiodarone HCl (Cordarone -) 200 mg PO DAILY [facility] Last Admin: 09/30/17 09:37 Dose: 200 mg Aspirin (Ecotrin -) 81 mg PO DAILY [facility] Atorvastatin Calcium (Lipitor -) 10 mg PO HS [facility] Last Admin: 09/29/17 21:13 Dose: 10 mg Budesonide (Pulmicort 0.25 Mg Nebulizer -) 1 amp NEB BID PRN PRN Reason: SHORTNESS OF BREATH Docusate Sodium (Colace -) 200 mg PO DAILY [facility] Last Admin: 09/30/17 09:38 Dose: 200 mg Ampicillin Sodium/Sulbactam (Sodium 1.5 gm/ Sodium Chloride) 100 mls @ 200 mls/ hr IVPB Q8H-IV [facility] Last Admin: 09/30/17 18:03 Dose: 200 mls/hr Sodium Chloride (Normal Saline -) 1,000 mls @ 75 mls/hr IV ASDIR [facility] Last Admin: 09/30/17 09:28 Dose: Not Given Metoprolol Succinate (Toprol Xl -) 25 mg PO DAILY [facility] Last Admin: 09/30/17 09:37 Dose: 25 mg Warfarin Sodium (Coumadin -) 5 mg PO DAILY@1800 [facility] - Objective Vital Signs: Vital Signs Temperature 97.5 F L 09/30/17 18:37 Pulse Rate 70 09/30/17 18:37 Respiratory Rate 20 09/30/17 18:37 Blood Pressure 125/55 09/30/17 18:37 O2 Sat by Pulse Oximetry (%) 100 09/30/17 14:00 Constitutional: Yes: No Distress HENT: Yes: Atraumatic Neck: Yes: Supple Cardiovascular: Yes: Regular Rate and Rhythm Respiratory: Yes: CTA Bilaterally Gastrointestinal: Yes: Normal Bowel Sounds Extremities: Yes: Other (llex dressing intact) Neurological: Yes: Alert, Oriented Labs: CBC, BMP 09/30/17 06:25 09/29/17 09:25 INR, PTT INR 1.49 (0.82-1.09) H 09/30/17 06:25 Problem List - Problems (1) CHF (congestive heart failure) Assessment/Plan: on meds stable Code(s): I50.9 - HEART FAILURE, UNSPECIFIED (2) HTN (hypertension) Assessment/Plan: onmeds stable Code(s): I10 - ESSENTIAL (PRIMARY) HYPERTENSION (3) Anemia Assessment/Plan: for egd/colonoscopy in am Code(s): D64.9 - ANEMIA, UNSPECIFIED Qualifiers: Anemia type: unspecified type Qualified Code(s): D64.9 - Anemia, unspecified (4) Near syncope Code(s): R55 - SYNCOPE AND COLLAPSE (5) Pneumonia Assessment/Plan: on iv abx id on board Code(s): J18.9 - PNEUMONIA, UNSPECIFIED ORGANISM Qualifiers: Pneumonia type: due to unspecified organism Laterality: unspecified laterality Lung location: unspecified part of lung Qualified Code(s): J18.9 - Pneumonia, unspecified organism
[2017-09-30] MEDS: ATORVASTATIN CA 10 MG TABLET (FP) PO SCH (21:58)
[2017-10-01] MEDS ORDERED: PT OWN MED DRAWER 7, Y5N ONE (02:12)
[2017-10-01] MEDS: AMPICILLIN NA/SULBACTAM NA 1.5 GM in SODIUM CHLORIDE 100 ML IVPB SCH ×2 (02:17→09:26)
[2017-10-01 08:18] LABS: HEMATOCRIT 27.8 % (35.4-49); HEMOGLOBIN 9.3 GM/dL (11.7-16.9); MCH 30.9 pg (25.7-33.7); MCHC 33.4 g/dl (32.0-35.9); MEAN CELL VOLUME 92.3 fl (80-96); MEAN PLT VOLUME 6.9 fl (7.5-11.1); PLATELET COUNT 482 K/MM3 (134-434); RBC 3.01 M/mm3 (4.00-5.60); WHITE BLOOD COUNT 9.4 K/mm3 (4.0-10.0)
[2017-10-01 08:23] LABS: INR 1.41 (0.82-1.09); PROTHROMBIN TIME (PATIENT) 15.9 SEC (9.98-11.88)
[2017-10-01] MEDS: AMIODARONE HCL 200 MG TABLET (FP) PO SCH (09:27)
[2017-10-01] MEDS: DOCUSATE SODIUM 100 MG CAPSULE (FP) PO SCH (09:27)
[2017-10-01] MEDS: metoPROLOL SUCCINATE 25 MG TAB.SR.24H (FP) PO SCH (09:27)
--- NOTE | 2017-10-01 09:59 | PN ---
Progress Note, Physician History of Present Illness: Chart reviewed. No events. Comfortable. - Current Medication List Current Medications: Active Medications Acetaminophen (Tylenol -) 650 mg PO Q6H PRN PRN Reason: FEVER OR PAIN Amiodarone HCl (Cordarone -) 200 mg PO DAILY [facility] Last Admin: 10/01/17 09:27 Dose: 200 mg Aspirin (Ecotrin -) 81 mg PO DAILY [facility] Last Admin: 10/01/17 09:27 Dose: 81 mg Atorvastatin Calcium (Lipitor -) 10 mg PO HS [facility] Last Admin: 09/30/17 21:58 Dose: 10 mg Budesonide (Pulmicort 0.25 Mg Nebulizer -) 1 amp NEB BID PRN PRN Reason: SHORTNESS OF BREATH Docusate Sodium (Colace -) 200 mg PO DAILY [facility] Last Admin: 10/01/17 09:27 Dose: 200 mg Ampicillin Sodium/Sulbactam (Sodium 1.5 gm/ Sodium Chloride) 100 mls @ 200 mls/ hr IVPB Q8H-IV [facility] Last Admin: 10/01/17 09:26 Dose: 200 mls/hr Sodium Chloride (Normal Saline -) 1,000 mls @ 75 mls/hr IV ASDIR [facility] Last Admin: 09/30/17 23:45 Dose: Not Given Metoprolol Succinate (Toprol Xl -) 25 mg PO DAILY [facility] Last Admin: 10/01/17 09:27 Dose: 25 mg Warfarin Sodium (Coumadin -) 5 mg PO DAILY@1800 [facility] - Objective Vital Signs: Vital Signs Temperature 98.2 F 10/01/17 06:00 Pulse Rate 68 10/01/17 06:00 Respiratory Rate 20 10/01/17 06:00 Blood Pressure 147/59 10/01/17 06:00 O2 Sat by Pulse Oximetry (%) 100 09/30/17 22:00 Constitutional: Yes: Well Nourished, No Distress, Calm Eyes: Yes: Conjunctiva Clear HENT: Yes: Atraumatic Neck: Yes: Supple Cardiovascular: Yes: Regular Rate and Rhythm Respiratory: Yes: Regular Gastrointestinal: Yes: Soft. No: Melena, Rectal Bleeding, Tenderness, Vomiting Neurological: Yes: Alert, Oriented Labs: CBC, BMP 10/01/17 06:30 09/29/17 09:25 INR, PTT INR 1.41 (0.82-1.09) H 10/01/17 06:30 Laboratory Results - last 24 hr 09/27/17 10/01/17 10/01/17 15:00 06:30 06:30 WBC 9.4 RBC 3.01 L Hgb 9.3 L Hct 27.8 L MCV 92.3 MCH 30.9 MCHC 33.4 RDW 16.0 H Plt Count 482 H MPV 6.9 L PT with INR 15.90 H INR 1.41 H Blood Type A POSITIVE Antibody Screen Negative Crossmatch See Detail Problem List - Problems (1) Anemia Code(s): D64.9 - ANEMIA, UNSPECIFIED Qualifiers: Anemia type: unspecified type Qualified Code(s): D64.9 - Anemia, unspecified Assessment/Plan Normal EGD; colonoscopy showed moderate-severe sigmoid diverticulosis. Hemoccult negative stools. Diet as tolerated. Anticoagulation as per cardiology. Close monitoring for signs of bleeding. Avoid constipation, hard stools. discussed with the patient
[2017-10-01] MEDS ORDERED: ASPIRIN COATED 81 MG TABLET.EC PO SCH (10:00)
--- NOTE | 2017-10-01 11:52 | PN ---
Progress Note (short form) - Note Progress Note: Trial of PPI x 14 days for chronic cough, presumed LPR. Problem List - Problems (1) Anemia Code(s): D64.9 - ANEMIA, UNSPECIFIED Qualifiers: Anemia type: unspecified type Qualified Code(s): D64.9 - Anemia, unspecified
[2017-10-01] MEDS ORDERED: PANTOPRAZOLE 40 MG TABLET (FP) PO SCH (12:00)
--- NOTE | 2017-10-01 12:12 | PN ---
Progress Note, Physician History of Present Illness: Pt feels well. No fever/chills. No shortness of breath but with dry cough. No new complaints. - Current Medication List Current Medications: Active Medications Acetaminophen (Tylenol -) 650 mg PO Q6H PRN PRN Reason: FEVER OR PAIN Amiodarone HCl (Cordarone -) 200 mg PO DAILY [facility] Last Admin: 10/01/17 09:27 Dose: 200 mg Aspirin (Ecotrin -) 81 mg PO DAILY [facility] Last Admin: 10/01/17 09:27 Dose: 81 mg Atorvastatin Calcium (Lipitor -) 10 mg PO HS [facility] Last Admin: 09/30/17 21:58 Dose: 10 mg Budesonide (Pulmicort 0.25 Mg Nebulizer -) 1 amp NEB BID PRN PRN Reason: SHORTNESS OF BREATH Docusate Sodium (Colace -) 200 mg PO DAILY [facility] Last Admin: 10/01/17 09:27 Dose: 200 mg Ampicillin Sodium/Sulbactam (Sodium 1.5 gm/ Sodium Chloride) 100 mls @ 200 mls/ hr IVPB Q8H-IV [facility] Last Admin: 10/01/17 09:26 Dose: 200 mls/hr Sodium Chloride (Normal Saline -) 1,000 mls @ 75 mls/hr IV ASDIR [facility] Last Admin: 09/30/17 23:45 Dose: Not Given Metoprolol Succinate (Toprol Xl -) 25 mg PO DAILY [facility] Last Admin: 10/01/17 09:27 Dose: 25 mg Pantoprazole Sodium (Protonix -) 40 mg PO DAILY [facility] Stop: 10/15/17 12:00 Warfarin Sodium (Coumadin -) 5 mg PO DAILY@1800 [facility] - Objective Vital Signs: Vital Signs Temperature 98.2 F 10/01/17 06:00 Pulse Rate 68 10/01/17 06:00 Respiratory Rate 20 10/01/17 06:00 Blood Pressure 147/59 10/01/17 06:00 O2 Sat by Pulse Oximetry (%) 100 09/30/17 22:00 Constitutional: Yes: No Distress, Calm Neck: Yes: Supple Cardiovascular: Yes: Regular Rate and Rhythm Respiratory: Yes: CTA Bilaterally Gastrointestinal: Yes: Normal Bowel Sounds, Soft Genitourinary: Yes: WNL Edema: LLE: 3+, RLE: 3+ Wound/Incision: Yes: Dressing Dry and Intact (LLE) Neurological: Yes: Alert, Oriented Labs: CBC, BMP 10/01/17 06:30 09/29/17 09:25 INR, PTT INR 1.41 (0.82-1.09) H 10/01/17 06:30 Problem List - Problems (1) Leukocytosis Code(s): D72.829 - ELEVATED WHITE BLOOD CELL COUNT, UNSPECIFIED Assessment/Plan 86 y.o. male with Prostate CA, CAD, [place] s/p stent, CHF, HTN s/p recent femoral artery thrombectomy, compartment syndrome s/p LLE fasciotomy presenting with weakness. Leukocytosis- resolved Mild fever - afebrile now Anemia-s/p EGD/Colonoscopy Dry cough - d/c Unasyn, start Augmentin po x 5 more days and monitor - vascular eval noted -repeat CXR
--- NOTE | 2017-10-01 12:27 | PN ---
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 work up noted. Patient was on iv protonix. But no longer Reviewed Gerd/laryngopharyngeal reflux Precautions that may be Contributing to patients dry cough and educated patient and his family as well as Dietary regarding recommendations. Reviewed with GI, Suggest trial of PPI to reduce risk of LPR/dry cough
[2017-10-01 15:16] VITALS: BP 123/61; PULSE 70; TEMP 97.7
--- NOTE | 2017-10-01 16:27 | DS ---
Physical Examination Vital Signs: Vital Signs Temperature 97.7 F 10/01/17 14:15 Pulse Rate 70 10/01/17 14:15 Respiratory Rate 16 10/01/17 14:15 Blood Pressure 123/61 10/01/17 14:15 O2 Sat by Pulse Oximetry (%) 98 10/01/17 09:00 Constitutional: Yes: No Distress HENT: Yes: Atraumatic Neck: Yes: Supple Cardiovascular: Yes: Regular Rate and Rhythm Respiratory: Yes: CTA Bilaterally Gastrointestinal: Yes: Normal Bowel Sounds Extremities: Yes: WNL Labs: CBC, BMP 10/01/17 06:30 09/29/17 09:25 Discharge Summary Reason For Visit: ANEMIA Current Active Problems Anemia (Acute) CHF (congestive heart failure) (Acute) HTN (hypertension) (Acute) Leukocytosis (Acute) Near syncope (Acute) Pneumonia (Acute) Condition: Unchanged/Unknown - Instructions Referrals: Tony Lara MD [Non Staff, Medical] - - Home Medications Comprehensive Discharge Medication List: Ambulatory Orders Acetaminophen [Tylenol] 650 mg PO Q6H PRN 09/27/17 Amiodarone HCl 200 mg PO DAILY 09/27/17 Aspirin [ASA -] 81 mg PO DAILY 09/27/17 Atorvastatin Ca [Lipitor] 10 mg PO HS 09/27/17 Budesonide [Pulmicort 0.25 mg Nebulizer -] 1 neb PO BID PRN 09/27/17 Docusate Sodium [Colace -] 200 mg PO DAILY 09/27/17 Enoxaparin Sodium [Lovenox] 100 mg SQ ASDIR 09/27/17 Hydromorphone [Dilaudid -] 2 mg PO ASDIR PRN 09/27/17 Levalbuterol HCl 0.31 mg IH Q6H 09/27/17 Metoprolol Succinate [Toprol XL -] 25 mg PO DAILY 09/27/17 Warfarin Sodium [Coumadin] 5 mg PO HS 09/27/17 Amoxicillin/Potassium Clav [Augmentin 875-125 Tablet] 1 each PO BID #14 tablet 09/30/17 md snf
[2017-10-01] MEDS ORDERED: WARFARIN NA 5 MG TABLET (UD) PO SCH (18:00)
== END 2017-10-01 18:25 | DRG 811 ==
LOC: JER 12:34 → JERBED 19:06 → J4S 23:04
PROVIDERS: ADMIT Internal Medicine; ATTEND Internal Medicine
PROC: 30233N1 Transfusion of Nonautologous Red Blood Cells into Peripheral Vein, Percutaneous Approach (ICD-10-PCS; 2017-09-27)
PROC: 0DJD8ZZ Inspection of Lower Intestinal Tract, Via Natural or Artificial Opening Endoscopic (ICD-10-PCS; 2017-09-30)
PROC: 0DJ08ZZ Inspection of Upper Intestinal Tract, Via Natural or Artificial Opening Endoscopic (ICD-10-PCS; principal; 2017-09-30 12:30)
DX: D64.9 Anemia, unspecified (principal); J18.9 Pneumonia, unspecified organism; N17.9 Acute kidney failure, unspecified; I25.10 Atherosclerotic heart disease of native coronary artery without angina pectoris; I11.0 Hypertensive heart disease with heart failure; I50.9 Heart failure, unspecified; I25.2 Old myocardial infarction; R55 Syncope and collapse; Z85.46 Personal history of malignant neoplasm of prostate; D72.829 Elevated white blood cell count, unspecified; R50.9 Fever, unspecified; I25.5 Ischemic cardiomyopathy; E78.5 Hyperlipidemia, unspecified; Z95.810 Presence of automatic (implantable) cardiac defibrillator; K57.30 Diverticulosis of large intestine without perforation or abscess without bleeding
CPT/HCPCS: 36415; 36430; 71010-TC; 80053; 81003; 81015; 82272; 82550; 82553; 83880; 84484; 85025; 85027; 85610; 86850; 86900; 86901; 86922; 87040; 87086; 93005; 93010; 97116-GP; 97161-GP; 99285-25; P9038; P9058